=== PATIENT | female | born 1990 | race Asian ===

== ENCOUNTER → 2016-12-01 | Outpatient (CLI) | payer BC, OTHER ==
--- NOTE | 2016-12-01 13:14 | US ---
December 01, [address] Cliff Khan, Thank you for requesting consultation and a follow up ultrasound for your patient, Mrs. Mikey shah. As you know, Carmen is a 26 year old G 2, P 1001 . Her due date is 12/17/16 by 14 week ultraso und. Her current gestational age based on this dating is is 37 weeks 5 days. She is seen today for a follow up assessment of growth secondary to LGA. Her first child was delivered by section and weighed 8 lb 10 oz.. ULTRASOUND Number of fetuses: 1 Placental location: Posterior presentation: Cephalic Heart Rate: 144 bpm Cervix: Suboptimal secondary to early gestational age Maximum Vertical Pocket: 5.2 cm Measurements: Biparietal diameter: 93 mm 38 weeks, 0 days Head circumference: 344 mm 39 weeks, 6 days Abdominal circumference: 359 mm 39 weeks, 6 days *>98th%ile Femur length: 71 mm 36 weeks, 4 days Humerus length: 64 mm 37 weeks, 2 days Transcerebellar diameter: 52 mm 37 weeks, 3 days Average age by ultrasound: 37 weeks, 5 days Estimated weight: 3628 gm weight percentile: 87 % ANATOMY anatomy was previously assessed. Today the following structures were visualized and appeared n ormal: Heart, stomach, bilateral kidneys, and bladder. IMPRESSION: 1. Intrauterine at 37 weeks, 5 days; SHELIA of 12/17/16. 2. growth is large for gestational age at the 87th%ile. 3. anatomy was previously assessed and today's ultrasound continues to provide reassurance of normal appearing anatomy. 4. Normal amniotic fluid volume 5. Prior section RECOMMENDATIONS: I was pleased to review today's ultrasound with your patient. I reassured her that growth is normal but large at the 87 %ile for this gestational age. The abdomen exceeds the 98th%ile. She passe d her Glucola but has a history of a large baby with her first. The amniotic fluid volume is normal. We performed a review of the anatomy which was limited by gestational age, but no overt abnorm alities were noted. She states that she has an upcoming appointment to discuss route of delivery. Thank you for allowing us the opportunity to evaluate your patient. Should you have any further ques tions or concerns please do not hesitate to contact me. Approximately 15 minutes were spent with the patient and 10 minutes were spent in face to face consu ltation. Haritha Siegel MD Offal Separator Maternal Medicine Diagnosis Department of Obstetrics & Gynecology [facility]
--- NOTE | 2016-12-01 17:41 | US ---
OB SONOGRAM HISTORY: SHELIA December 17, 2016, 37 weeks 5 days, follow-up growth, size greater than dates, macr osomia COMPARISON: October 13, 2016 FINDINGS: The fetus remains in vertex presentation. The cervix is obscured by the head. The vis ualized intracranial contents look normal. The heart is 4 chambered in as a rate of 1 44 bpm. There is no evidence for pleural or pericardial effusion. Fluid is identified in the stomach and urinary bladder. The renal region looks normal. There is no ascites. T he placenta is to the right of midline. It is beginning to mature. Maximum amniotic fluid pocket = 5. 2 cm. SILAS = 5.2 cm. BPD = 93 mm = 38 weeks 0 days Head circumference = 344 mm = 39 weeks 6 days Abdominal circumference = 359 mm = 39 weeks 6 days Femur length = 71 mm = 36 weeks 4 days Humeral length = 64 mm = 37 weeks 2 days Cerebellar width = 52 mm = 37 weeks 3 days Estimated weight = 3628 +/- 530 g = 87 percentile (previously 69 percentile) Impression: 1. growth is large, in the 87th percentile. 2. Normal SILAS. This report should be read in conjunction with a consultation by Dr. Haritha Siegel.
== END ==
LOC: FIMAGING 12:26
PROVIDERS: ATTEND Obstetrics & Gynecology
DX: O26.843 Uterine size-date discrepancy, third trimester (principal); Z3A.37 37 weeks gestation of pregnancy

== ENCOUNTER 2016-12-10 10:15 | Inpatient (IN) | payer BC, OTHER ==
[2016-12-10] MEDS ORDERED: ceFAZolin 2 GM/DEXTROSE 100 ML IV ONE (10:36)
[2016-12-10] MEDS ORDERED: LR 500 ML IV ONE (10:36)
[2016-12-10] MEDS ORDERED: CITRIC ACID/SODIUM CITRATE 30 ML UDCUP PO ONE (10:36)
[2016-12-10] MEDS ORDERED: LR 1,000 ML IV SCH (11:00)
[2016-12-10 11:30] LABS: % IMMATURE GRANULYOCYTES 0.6 % (0.0-1.1); ABSOLUTE IMMATURE GRANULOCYTES 0.05 10^3/uL (0.00-0.10); ADD DIFF? NO; ADD MORPH? NO; ADD SCAN? NO; ATYPICAL LYMPHOCYTE FLAG 0 (0-99); FRAGMENT RBC FLAG 0 (0-99); HEMATOCRIT 39.2 % (38.0-47.0); HEMOGLOBIN 13.3 g/dL (12.6-16.3); LEFT SHIFT FLG 0 (0-99); LIPEMIA HEMOLYSIS FLAG 90 (0-99); MEAN CELL HEMOGLOBIN CONCENTR. 33.9 g/dL (32.4-36.7); MEAN CELL VOLUME 91.4 fL (81.5-99.8); PLATELET CLUMPS FLAG 0 (0-99); PLATELET COUNT 230 10^3/uL (150-400); RED BLOOD CELL COUNT 4.29 10^6/uL (4.18-5.33); RED CELL DISTRIBUTION WIDTH 13.5 % (11.5-15.2)
[2016-12-10] MEDS ORDERED: METOCLOPRAMIDE 10 MG/2 ML VIAL IVP PRN (12:07)
[2016-12-10] MEDS ORDERED: MEPERIDINE 25 MG/ML SYR IVP PRN (12:07)
[2016-12-10] MEDS ORDERED: NALOXONE HCL 0.4 MG/ML INJ IVP PRN (12:07)
[2016-12-10] MEDS ORDERED: OXYCODONE/APAP 5/325 TAB PO PRN (12:07)
[2016-12-10] MEDS ORDERED: fentaNYL 100 MCG/2 ML INJ IVP PRN (12:07)
[2016-12-10] MEDS ORDERED: ONDANSETRON 4 MG/2 ML VIAL IVP PRN (12:07)
[2016-12-10] MEDS ORDERED: PHENYLEPHRINE HCL 100 MCG/ML SYR IVP PRN (12:07)
[2016-12-10] MEDS ORDERED: AMMONIA AROMATIC 1 EACH AMP IH ONE (12:08)
[2016-12-10] MEDS ORDERED: OXYTOCIN 10 UNIT/ML VIAL ONE (12:09)
[2016-12-10] MEDS ORDERED: MISOPROSTOL 200 MCG TAB ONE (12:09)
[2016-12-10] MEDS ORDERED: SIMETHICONE 80 MG TAB CHEW PO PRN (12:16)
[2016-12-10] MEDS ORDERED: DOCUSATE SODIUM 100 MG CAP PO PRN (12:16)
[2016-12-10] MEDS ORDERED: PROMETHAZINE HCL 25 MG/ML INJ IVP PRN (12:16)
[2016-12-10] MEDS ORDERED: morphINE PF 5 MG/10 ML INJ ONE (12:22)
[2016-12-10] MEDS ORDERED: fentaNYL 100 MCG/2 ML INJ ONE (12:22)
[2016-12-10 12:36] LABS: ALANINE AMINOTRANSFERASE 32 IU/L (9-52); ASPARTATE AMINOTRANSFERASE 21 IU/L (14-46); BILIRUBIN,TOTAL 0.3 mg/dL (0.1-1.4); BILIRUBIN-CONJUGATED 0.1 mg/dL (0.0-0.5); BILIRUBIN-UNCONJUGATED 0.2 mg/dL (0.0-1.1); CREATININE 0.5 mg/dL (0.6-1.0); GLOMERULAR FILTRATION RATE > 60; LACTATE DEHYDROGENASE 555 IU/L (313-618); URIC ACID 4.6 mg/dL (2.5-6.8)
[2016-12-10] MEDS ORDERED: ESMOLOL HCL 100 MG/10 ML VIAL IV ONE (13:15)
--- NOTE | 2016-12-10 13:52 | OBPROC ---
- Delivery Pre-op Diagnoses: mild preeclampsia Post-op Diagnoses: mild preeclampsia Procedure: Repeat Surgeon: Lissa Pena Shearer Helper: Sayda Bustos Anesthesiologist: Vanessa Sousa [employer] Consultant/HYPERBARIC TECH: Kerrie Rothman Anesthesia: Spinal Complications: None IV Fluid (ml): 2,000 EBL: 1000 - Info Infant A Delivery Date: 12/10/16 Delivery Time: 13:19 Sex of : Male Score (1 Min): 8 Score (5 Min): 9
--- NOTE | 2016-12-10 14:58 | GOP ---
[f rep st] OPERATIVE REPORT DATE OF OPERATION: 12/10/2016 SURGEON: Lissa Khan MD BOTTLE CAPPING MACHINE OPERATOR: Sayda Bustos CNM, neurosurgical nurse practitioner. ANESTHESIA: Spinal. PREOPERATIVE DIAGNOSIS: Intrauterine at 39 and 0/7 weeks' gestation, previous section, and mild preeclampsia. POSTOPERATIVE DIAGNOSIS: Intrauterine at 39 and 0/7 weeks' gestation , previous section, and mild preeclampsia. PROCEDURE PERFORMED: Repeat low-transverse section. 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 Normal fallopian tubes and ovaries. ESTIMATED BLOOD LOSS: 1000 mL. INDICATIONS: The patient is a 26-year-old G2, P1, female who had previous section. She developed mild preeclampsia, and agreed to undergo a repeat section. DESCRIPTION OF PROCEDURE: The patient was taken to the operating room where she was prepped and draped in a normal sterile fashion in the dorsal supine position with a leftward tilt. The patient received 2 g of Ancef preoperatively. A surgical time-out was performed, verifying the patient's name , date of , planned procedure, and site. A Pfannenstiel skin incision was made with a scalpel and carried through to the underlying fascia. The fascia was incised in the midline and extended laterally. The superior aspect of the fascia was grasped with the Ezra clamps, and the rectus muscles dissected off bluntly and with the Bovie cautery. The inferior aspect of the fascia was grasped with the Ezra clamps. The rectus muscles dissected off bluntly and with the Bovie cautery. As stated, there were significant adhesions of the rectus muscle to the uterine wall, which were taken down carefully with sharp dissection. The bladder flap was then able to be visualized, and the bladder flap was created with Metzenbaum scissors, and the bladder blade was replaced. The uterus was incised with the scalpel, and then the uterine incision extended laterally with the bandage scissors. The was delivered. The cord was clamped and cut. Cord blood was obtained. The infant was handed to the nurse practitioner. The placenta was delivered spontaneously. The uterus was exteriorized and cleared of all clots and debris. The uterine incision was reapproximated with 0 Monocryl in a running locked fashion. The uterine incision was reapproximated in 2 layers. There was bleeding of the serosa of the uterus where the adhesion of the rectus muscle was that was repaired with 0 Monocryl in a [id number] fashion. Surgicel was placed over the uterine incision and the serosal adhesion repair. The gutters were cleared of all clots and debris. The uterus was returned to the abdomen. The subfascial spaces were inspected and noted to be hemostatic. The fascia was reapproximated with 0 Vicryl. The subcutaneous tissue was irrigated and closed with 3-0 Vicryl, and the skin was closed with 4-0 Monocryl. All counts were correct x2. COMPLICATIONS: None. COMPLICATIONS: None. OUTCOME: Stable to the recovery room. /[id number]/MODL MTDD
[2016-12-10] MEDS ORDERED: KETOROLAC 30 MG/1 ML SDV ONE (15:14)
[2016-12-10] MEDS: KETOROLAC 30 MG/1 ML SDV IVP SCH ×2 (15:16→21:05)
[2016-12-10] MEDS: HYDROCODONE/APAP 5/325 TAB PO PRN (18:20)
[2016-12-10 18:59] LABS: % IMMATURE GRANULYOCYTES 0.5 % (0.0-1.1); ABSOLUTE IMMATURE GRANULOCYTES 0.07 10^3/uL (0.00-0.10); ADD DIFF? NO; ADD MORPH? NO; ADD SCAN? NO; ATYPICAL LYMPHOCYTE FLAG 0 (0-99); FRAGMENT RBC FLAG 0 (0-99); HEMATOCRIT 35.4 % (38.0-47.0); LEFT SHIFT FLG 0 (0-99); LIPEMIA HEMOLYSIS FLAG 90 (0-99); MEAN CELL HEMOGLOBIN 31.4 pg (27.9-34.1); MEAN CELL HEMOGLOBIN CONCENTR. 33.9 g/dL (32.4-36.7); MEAN CELL VOLUME 92.7 fL (81.5-99.8); MEAN PLATELET VOLUME 10.7 fL (8.7-11.7); PLATELET CLUMPS FLAG 10 (0-99); PLATELET COUNT 206 10^3/uL (150-400); RED BLOOD CELL COUNT 3.82 10^6/uL (4.18-5.33); RED CELL DISTRIBUTION WIDTH 13.5 % (11.5-15.2)
[2016-12-10] MEDS ORDERED: LR 1,000 ML IV ONE (19:00)
[2016-12-11] MEDS: KETOROLAC 30 MG/1 ML SDV IVP SCH ×2 (03:21→09:40)
[2016-12-11] MEDS: HYDROCODONE/APAP 5/325 TAB PO PRN (06:49)
--- NOTE | 2016-12-11 08:54 | SOAPPROG ---
SOAP Progress Note Assessment/Plan: Assessment: 26 yo POD#1 s/p repeat C/S complicated by adhesive disease Moderate distention, not passing flatus, c/o shoulder pain bilateral consistent with intraabdominal gas Tachycardia overnight but with no shortness of breath, chest pain. Lungs clear. CBC and UOP appropriate Plan: EKG now. No e/o intrabdominal bleeding (CBC stable x 2, normal UOP). Continue to monitor closely, consider CXR or eval for PE if tachycardia does not improve or she develops new symptoms Incentive spirometer Ambulated Trial percocet to ensure adequate pain control (currently she states at 06/18) 12/11/16 12:39 12/11/16 12:46 Subjective: + bloating/distention. Pain somewhat controlled with the pain pills, but currently 06/18. Was able to dangle. Lee in place. Had scrambled eggs for breastfast. Minimal bleeding. Does have some pain in shoulders on either side when she tries to take a deep breath. Objective: Vital Signs Temp Pulse Resp BP Pulse Ox 37.3 C 115 H 20 135/89 H 90 L 12/11/16 07:51 12/11/16 07:51 12/11/16 07:51 12/11/16 07:51 12/11/16 07:51 Laboratory Results 12/11/16 04:45 12/10/16 11:20 12/10/16 12/11/16 12/12/16 05:59 05:59 05:59 Intake Total 5200 Output Total 3040 Balance 2160 Gen: alert, awake, NAD Resp: unlabored, CTAB CV: tachycardia, regular rhythm Abd: soft, moderately distended/tympanic, appropriately tender, no rebound/ guarding Incision: bandage c/d/i Ext: trace to 1+ edema lower. Warm. No calf tenderness ICD10 Worksheet Patient Problems: Problems Problem Status Diagnosed Mild pre-eclampsia Acute Normal labor Acute Placenta abruption, delivered, current hospitalization Acute Previous delivery, delivered Acute Proteinuria complicating Acute
--- NOTE | 2016-12-11 12:13 | CPEKG ---
Heart Rate: 109 RR Interval: 550 P-R Interval: 148 QRSD Interval: 76 QT Interval: 332 QTC Interval: 448 P [place]: 24 QRS [place]: 72 T Wave [place]: -11 EKG Severity - BORDERLINE ECG - EKG Impression: SINUS TACHYCARDIA EKG Impression: BORDERLINE T ABNORMALITIES, DIFFUSE LEADS Electronically Signed By: Jennifer Ling 11-Dec-2016 15:54:33
--- NOTE | 2016-12-11 12:30 | SOAPPROG ---
SOAP Progress Note Assessment/Plan: Assessment: 26 yo s/p rltcs, STARLA, doing well overall. Plan: 12/11/16 12:27 Will begin routine postop care. Sinus tachycardia-will repeat cbc, PIH panel. Think tachycardia likely due to extensive lysis of adhesion, completely normal and adequate urine output so think blood loss as a cause is unlikely. Patient also has normal 02 sats, so think PE is unlikely. Patient has right shoulder pain which is likely due to recent surgery. Will have cards look at EKG for any other recs. Subjective: 26 yo s/p rltcs, STARLA, doing well overall-some pain at the incision, some right shoulder pain, wants to ambulate, no shortness of breath. well. Objective: Vital Signs Temp Pulse Resp BP Pulse Ox 37.3 C 114 H 20 135/89 H 93 12/11/16 07:51 12/11/16 10:00 12/11/16 07:51 12/11/16 07:51 12/11/16 10:00 Laboratory Results 12/11/16 04:45 12/10/16 11:20 12/10/16 12/11/16 12/12/16 05:59 05:59 05:59 Intake Total 5200 Output Total 3040 1300 Balance 2160 -1300 Physical Exam - Physical Exam General Appearance: no apparent distress Respiratory: lungs clear Cardiac/Chest: tachycardia Abdomen: non-tender Extremities: non-tender Neuro/Psych: oriented x 3 ICD10 Worksheet Patient Problems: Problems Problem Status Diagnosed Mild pre-eclampsia Acute Normal labor Acute Placenta abruption, delivered, current hospitalization Acute Previous delivery, delivered Acute Proteinuria complicating Acute
[2016-12-11] MEDS: OXYCODONE/APAP 5/325 TAB PO PRN ×2 (12:31→21:52)
[2016-12-11 13:00] LABS: % IMMATURE GRANULYOCYTES 0.8 % (0.0-1.1); ABSOLUTE IMMATURE GRANULOCYTES 0.08 10^3/uL (0.00-0.10); ADD DIFF? NO; ADD MORPH? NO; ADD SCAN? NO; ATYPICAL LYMPHOCYTE FLAG 10 (0-99); FRAGMENT RBC FLAG 0 (0-99); HEMATOCRIT 32.7 % (38.0-47.0); HEMOGLOBIN 11.1 g/dL (12.6-16.3); LEFT SHIFT FLG 10 (0-99); LIPEMIA HEMOLYSIS FLAG 90 (0-99); MEAN CELL HEMOGLOBIN 31.1 pg (27.9-34.1); MEAN CELL HEMOGLOBIN CONCENTR. 33.9 g/dL (32.4-36.7); MEAN CELL VOLUME 91.6 fL (81.5-99.8); MEAN PLATELET VOLUME 10.4 fL (8.7-11.7); PLATELET CLUMPS FLAG 0 (0-99); PLATELET COUNT 190 10^3/uL (150-400); RED BLOOD CELL COUNT 3.57 10^6/uL (4.18-5.33); RED CELL DISTRIBUTION WIDTH 13.6 % (11.5-15.2)
[2016-12-11 13:25] LABS: ALANINE AMINOTRANSFERASE 28 IU/L (9-52); ASPARTATE AMINOTRANSFERASE 24 IU/L (14-46); BILIRUBIN,TOTAL 1.7 mg/dL (0.1-1.4); BILIRUBIN-CONJUGATED 1.4 mg/dL (0.0-0.5); BILIRUBIN-UNCONJUGATED 0.3 mg/dL (0.0-1.1); CREATININE 0.6 mg/dL (0.6-1.0); GLOMERULAR FILTRATION RATE > 60; LACTATE DEHYDROGENASE 720 IU/L (313-618); URIC ACID 5.3 mg/dL (2.5-6.8)
[2016-12-11] MEDS: IBUPROFEN 600 MG TAB PO PRN ×2 (15:29→20:56)
--- NOTE | 2016-12-11 16:55 | SOAPPROG ---
SOAP Progress Note Assessment/Plan: Assessment: POD #1 s/p repeat C/S performed under SAB. Intrathecal morphine was given for extended POPC. Pt. doing very well Plan: Continue current medical mgmt. 12/11/16 16:52 Subjective: Pt. denies N/V, pruritus, back pain, persistent numbness/weakness, urinary retention. Objective: Vital Signs Temp Pulse Resp BP Pulse Ox 37.4 C 110 H 20 142/100 H 94 12/11/16 15:47 12/11/16 15:47 12/11/16 15:47 12/11/16 15:47 12/11/16 15:47 Laboratory Results 12/11/16 12:50 12/11/16 12:50 12/10/16 12/11/16 12/12/16 05:59 05:59 05:59 Intake Total 5200 Output Total 3040 1950 Balance 2160 -1950 Physical Exam - Physical Exam General Appearance: WD/WN, alert, no apparent distress Neuro/Psych: no motor/sensory deficits, alert, normal mood/affect, oriented x 3 ICD10 Worksheet Patient Problems: Problems Problem Status Diagnosed Mild pre-eclampsia Acute Normal labor Acute Placenta abruption, delivered, current hospitalization Acute Previous delivery, delivered Acute Proteinuria complicating Acute
[2016-12-12] MEDS: OXYCODONE/APAP 5/325 TAB PO PRN ×5 (04:57→22:10)
[2016-12-12] MEDS: IBUPROFEN 600 MG TAB PO PRN ×3 (04:57→16:59)
[2016-12-12 05:19] LABS: % IMMATURE GRANULYOCYTES 0.9 % (0.0-1.1); ADD DIFF? NO; ADD MORPH? NO; ADD SCAN? NO; ATYPICAL LYMPHOCYTE FLAG 10 (0-99); FRAGMENT RBC FLAG 0 (0-99); HEMATOCRIT 31.1 % (38.0-47.0); HEMOGLOBIN 10.5 g/dL (12.6-16.3); LEFT SHIFT FLG 0 (0-99); LIPEMIA HEMOLYSIS FLAG 90 (0-99); MEAN CELL HEMOGLOBIN 31.4 pg (27.9-34.1); MEAN CELL HEMOGLOBIN CONCENTR. 33.8 g/dL (32.4-36.7); MEAN CELL VOLUME 93.1 fL (81.5-99.8); PLATELET CLUMPS FLAG 0 (0-99); PLATELET COUNT 203 10^3/uL (150-400); RED BLOOD CELL COUNT 3.34 10^6/uL (4.18-5.33); RED CELL DISTRIBUTION WIDTH 13.9 % (11.5-15.2)
[2016-12-12 05:46] LABS: ALANINE AMINOTRANSFERASE 29 IU/L (9-52); ASPARTATE AMINOTRANSFERASE 21 IU/L (14-46); CREATININE 0.5 mg/dL (0.6-1.0); GLOMERULAR FILTRATION RATE > 60; LACTATE DEHYDROGENASE 657 IU/L (313-618); URIC ACID 4.5 mg/dL (2.5-6.8)
--- NOTE | 2016-12-12 07:34 | ECHO ---
[id number] + + [address] : : [place] [address] : : [phone] + + Adult Echocardiographic Report + + :Name: TONJA CERDA Study Date: 12/11/2016 02:46 PM : : Hospital Admission Number: [id number] : :: 1990 Gender: Female Height: 60 in : :Age: 26 yrs Race: Weight: 193 lb : :Reason For Study: abnormal ekg s/p : : BSA: 1.8 meters2: :History: No previous : + + MMode/2D Measurements & Calculations IVSd: 1.2 cm LVIDd: 4.0 cm FS: 35.6 % LVOT diam: 1.8 cm LVPWd: 1.3 cm LVIDs: 2.6 cm EDV(Teich): 69.5 ml LVOT area: 2.6 cm2 ESV(Teich): 23.9 ml EF(Teich): 65.6 % Normal Measurement Values: + + :LVIDd (3.5-5.7cm) IVSd (0.6-1.1cm) LVPWd (0.6-1.1cm) Aortic Root (2.0-3.7cm)Left Atrium (1.5-4.0cm): :LV Vol(d) (76-115ml) LV Vol(s) (29-48ml) Ejec Fraction (50-65%)PV Ricky (0.6- 1.2m/s) TV Ricky (0.4-1.0m/s) : :MV E Ricky (0.8-1.0m/s)MV A Ricky (0.3-1.0m/s)LVOT Ricky (0.7-1.2m/s) Asc Ao Ricky ( 0.9-1.8m/s) : + + Doppler Measurements & Calculations MV E max ricky: MV V2 mean: Ao V2 max: LV V1 max: 79.0 cm/sec 58.6 cm/sec 144.3 cm/sec 95.8 cm/sec MV dec time: MV mean PG: Ao max P.3 mmHg LV V1 max P.18 sec 1.6 mmHg Ao mean P.7 mmHg MV V2 VTI: 14.7 cm3.9 mmHg LV V1 mean PG: MVA(VTI): 2.5 cm2 Ao V2 mean: 1.7 mmHg 90.1 cm/sec LV V1 mean: Ao V2 VTI: 20.3 cm 59.4 cm/sec OC(I,D): 1.8 cm2 LV V1 VTI: 14.2 cm OC(V,D): 1.7 cm2 SV(LVOT): 37.0 ml PA V2 max: TR max ricky: 130.3 cm/sec 131.9 cm/sec PA max PG: TR max P.0 mmHg 6.8 mmHg Left Ventricle The left ventricle is normal in size and function. There is normal left ventricular wall thickness. Ejection Fraction = 55-65%. Regional wall motion abnormalities cannot be excluded due to limited visualization. Right Ventricle The right ventricle is not well visualized. Atria The left atrial size is normal. Right atrium not well visualized. The interatrial septum is intact with no evidence for an atrial septal defect. Mitral Valve The mitral valve is normal in structure and function. There is no mitral valve stenosis. There is trace mitral regurgitation. Tricuspid Valve The tricuspid valve is not well visualized. There is no tricuspid stenosis. There is trace tricuspid regurgitation. Right ventricular systolic pressure is normal. Aortic Valve The aortic valve is normal in structure and function. There is no aortic stenosis. There is no aortic insufficiency. Pulmonic Valve The pulmonic valve is not well visualized. There is no pulmonic valvular stenosis. There is no pulmonic valvular regurgitation. Great Vessels The aortic root is normal size. Pericardium/Pleural There is a fat pad seen. Conclusion A complete two-dimensional transthoracic echocardiogram was performed (2D, M-mode, Doppler and color flow Doppler). Patient sitting up for duration of exam due to recent . However, this is likely a normal echocardiogram. The left ventricle is normal in size and function. Ejection Fraction = 55-65%. Regional wall motion abnormalities cannot be excluded due to limited visualization. The right ventricle is not well visualized. There is trace mitral regurgitation. There is trace tricuspid regurgitation. Right ventricular systolic pressure is normal. The aortic valve is normal in structure and function. Patient sitting up for duration of exam due to recent . However, this is likely a normal echocardiogram. Final Reading Physician: Mike Suarez signed on 12/12/2016 07:32 AM Ordering Physician: Jovany Marcano Performed By: Betsy Bolanos
--- NOTE | 2016-12-12 12:37 | SOAPPROG ---
SOAP Progress Note Assessment/Plan: Assessment: 26 yo s/p rltcs, STARLA, doing well overall, pod 2. Plan: 12/11/16 12:27 Routine postop care. Rh +, rubella immune. Tachycardia resolved and normal echocardiogram. Anticipate d/c tomorrow. 12/12/16 12:36 Subjective: 26 yo s/p rltcs, STARLA, doing well overall, pod 2-no complaints. Objective: Vital Signs Temp Pulse Resp BP Pulse Ox 37.1 C 87 18 126/85 H 92 12/12/16 07:45 12/12/16 07:45 12/12/16 07:45 12/12/16 07:45 12/12/16 07:45 Laboratory Results 12/12/16 05:05 12/12/16 05:05 12/11/16 12/12/16 12/13/16 05:59 05:59 05:59 Intake Total 5200 Output Total 3040 1950 Balance 2160 -1950 Physical Exam - Physical Exam General Appearance: no apparent distress Respiratory: lungs clear Cardiac/Chest: regular rate, rhythm Abdomen: non-tender Skin: warm/dry Extremities: non-tender Neuro/Psych: oriented x 3 ICD10 Worksheet Patient Problems: Problems Problem Status Diagnosed Mild pre-eclampsia Acute Normal labor Acute Placenta abruption, delivered, current hospitalization Acute Previous delivery, delivered Acute Proteinuria complicating Acute
[2016-12-13] MEDS: OXYCODONE/APAP 5/325 TAB PO PRN ×3 (01:59→10:30)
--- NOTE | 2016-12-13 08:27 | SOAPPROG ---
SOAP Progress Note Assessment/Plan: Assessment: 26 yo s/p rltcs, STARLA, doing well overall, pod 3. Plan: Discharge home Rh +, rubella immune. Tachycardia resolved and normal echocardiogram. RX motrin and percocet F/U in 2 weeks or sooner prn Bleeding/pain/fever precautions 12/13/16 08:27 Subjective: Pt feels well, pain well controlled, ambulating, voiding, lochia diminishing. No complaints. Objective: Vital Signs Temp Pulse Resp BP Pulse Ox 37.0 C 85 18 126/80 H 96 12/13/16 06:00 12/13/16 06:00 12/13/16 06:00 12/13/16 06:00 12/13/16 06:00 Laboratory Results 12/12/16 05:05 12/12/16 05:05 12/12/16 12/13/16 12/14/16 05:59 05:59 05:59 Output Total 1950 Balance -1950 Physical Exam - Physical Exam General Appearance: WD/WN, alert, no apparent distress Respiratory: lungs clear Cardiac/Chest: regular rate, rhythm Abdomen: normal bowel sounds, non-tender, soft, other (incision c/d/i, fundus firm) ICD10 Worksheet Patient Problems: Problems Problem Status Diagnosed Mild pre-eclampsia Acute Normal labor Acute Placenta abruption, delivered, current hospitalization Acute Previous delivery, delivered Acute Proteinuria complicating Acute
[2016-12-13] MEDS: IBUPROFEN 600 MG TAB PO PRN (08:57)
[2016-12-13 09:05] VITALS: BP 137/92; PULSE 99; RESP 17; TEMP 97.3; O2SAT 95
== END 2016-12-13 10:45 | disposition home or self-care (01) | DRG 766 ==
LOC: FLD 10:15 → FOB 16:17
PROVIDERS: ADMIT Obstetrics & Gynecology; ATTEND Obstetrics & Gynecology
PROC: 0UN90ZZ Release Uterus, Open Approach (ICD-10-PCS; principal; 2016-12-10)
PROC: 10D00Z1 Extraction of Products of Conception, Low, Open Approach (ICD-10-PCS; principal; 2016-12-10)
DX: O14.03 Mild to moderate pre-eclampsia, third trimester (principal); O34.211 Maternal care for low transverse scar from previous cesarean delivery; O99.89 Other specified diseases and conditions complicating pregnancy, childbirth and the puerperium; N73.6 Female pelvic peritoneal adhesions (postinfective); Z3A.39 39 weeks gestation of pregnancy; Z37.0 Single live birth
CPT/HCPCS: G0463; J0690; J1885; J2274; J3010

== ENCOUNTER 2017-02-05 09:08 | Emergency (ER) | payer BC, OTHER ==
[2017-02-05 09:33] VITALS: BP 140/90; PULSE 95; RESP 20; TEMP 99; O2SAT 99
--- NOTE | 2017-02-05 09:36 | UCPHY ---
H & P Patient Type: Established Time Seen by Provider: 02/05/17 09:24 HPI/ROS: Chief Complaint: Anxiety, palpitations HPI: 26-year-old woman who is 2 months has been having feelings of anxiety and ways of palpitations since last night. States she feels like her heart is pounding and feels very nervous. Does not have a history of anxiety in the past. Denies any depression or feeling sad since having the baby. No suicidal or homicidal thoughts. States she has been sleeping. Denies any excessive caffeine ingestion no other drug use. No chest pain. Has had some mild shortness of breath intermittently. No weight loss or weight gain. ROS: 10 point Review of Systems is negative except as noted in the HPI. PMH: None Medications: None Allergies: No known drug allergies Social History: No smoking, no alcohol, no recreational drug use Family History: non-contributory Physical Exam: Gen: Awake, Alert, No Distress HEENT: Nose: no rhinorrhea Eyes: PERRLA, EOMI Mouth: Moist mucosa Neck: Supple, no JVD Chest: nontender, lungs clear to auscultation Heart: S1, S2 normal, no murmur Abd: Soft, non-tender, no guarding Back: no CVA tenderness, no midline tenderness Ext: no edema, non-tender Skin: no rash Neuro: CN II-XII intact, Sensation grossly intact, Strength 5/5 in bilateral upper and lower extremities - Personal History Tetanus Vaccine Date: 05/15/14 - Medical/Surgical History Hx Asthma: No Hx Chronic Respiratory Disease: No Hx Diabetes: No Hx Cardiac Disease: No Hx Renal Disease: No Hx Cirrhosis: No Hx Alcoholism: No Hx HIV/AIDS: No Hx Splenectomy or Spleen Trauma: No Other PMH: c/s 2013. hypothyroid dxd 11/2013. appendectomy 2014 - Family History Significant Family History: No pertinent family hx - Social History Smoking Status: Never smoked Constitutional: Initial Vital Signs Temperature (C) 37.2 C 02/05/17 09:15 Heart Rate 95 02/05/17 09:15 Respiratory Rate 20 02/05/17 09:15 Blood Pressure 140/90 H 02/05/17 09:15 O2 Sat (%) 99 02/05/17 09:15 O2 Delivery Mode Room Air Allergies/Adverse Reactions: No Known Allergies Allergy (Verified 02/05/17 09:25) Medical Decision Making - Diagnostics EKG Interpretation: ECG time: 9:35 a.m.: Sinus rhythm with a rate in 94, normal axis, normal intervals, no acute ST or T-wave changes, impression: normal ECG ED Course/Re-evaluation: 26-year-old presenting with anxiety a sided type symptoms and some mild shortness of breath since yesterday evening. This comes and goes. She is having some palpitations associated with this. She is 2 months but denies any depression type symptoms. She does states she is sleeping. He has not had large amounts of caffeine ingestion or any other substances. She states primarily she is feeling "nervous". Her oxygen saturations are normal. She is not tachycardic. She has not have any other symptoms suggestive of PE. She has not had any recent weight loss or weight gain to suggest thyroid disease, and symptoms only began yesterday. ECG is normal. Physical exam is unremarkable. Given that she is breast-feeding I do not want to give her any benzodiazepines at this time. I will reassure her and encouraged her to follow up with primary care, I will give her a referral for this. She has been instructed to return immediately for any other concerns including worsening chest pain, shortness of breath. Depression, suicidal or homicidal thoughts, or any other concerns. Departure - Departure Disposition: Home, Routine, Self-Care Clinical Impression: Anxiety reaction, Palpitations Condition: Good Instructions: Palpitations (ED) Additional Instructions: Follow up with primary care physician in 2-3 days for further evaluation. Return the emergency department for increasing shortness of breath, palpitations , chest pain, fevers, chills, thoughts of hurting herself or somebody else, or any other concerns. Referrals: Yashira Lin MD [[facility] Primary Care Provider] - As per Instructions - PQRS PQRS Measurement: NA
--- NOTE | 2017-02-05 09:38 | CPEKG ---
Heart Rate: 94 RR Interval: 638 P-R Interval: 148 QRSD Interval: 80 QT Interval: 360 QTC Interval: 451 P [place]: 28 QRS [place]: 80 T Wave [place]: 28 EKG Severity - BORDERLINE ECG - EKG Impression: SINUS RHYTHM EKG Impression: BORDERLINE T ABNORMALITIES, ANTERIOR LEADS Electronically Signed By: Dean Fried 05-Feb-2017 09:52:12
== END 2017-02-05 09:48 | disposition home or self-care (01) ==
LOC: CED 09:08
DX: F41.1 Generalized anxiety disorder (principal); R00.2 Palpitations
CPT/HCPCS: 99214-PO; G0463-PO